=== PATIENT | male | born 1990 | race Caucasian/White ===

== ENCOUNTER 2017-08-14 07:14 | Day surgery (SDC) | payer OTHER ==
[~2017-08-14 07:14] MED LIST: CEFAZOLIN 2 GM/50 ML (PMX) 50 ML IVPB; DEXAMETHASONE 4 MG/ML 1 ML INJ; ONDANSETRON 4 MG INJ; SOD CHLORIDE 0.9% 1,000 ML IV
[2017-08-14] MEDS ORDERED: BUPIVACAINE 0.25% (MPF) 30 ML INJ (08:45)
[2017-08-14] MEDS ORDERED: LABETALOL HCL 20MG INJ IV (09:00)
[2017-08-14] MEDS ORDERED: KETOROLAC 30 MG INJ IV (09:00)
[2017-08-14] MEDS ORDERED: hydrALAzine 20 MG INJ IV (09:00)
[2017-08-14] MEDS ORDERED: HYDROmorphONE (0.2 MG/ML) 10ML SYG IV ×2 (09:00)
[2017-08-14] MEDS ORDERED: MEPERIDINE 25 MG INJ IV (09:00)
[2017-08-14] MEDS ORDERED: METOCLOPRAMIDE 10 MG INJ IV (09:00)
[2017-08-14] MEDS ORDERED: ALBUTEROL 0.083% (NEB) 2.5 MG/3 ML AMP HHN (09:00)
[2017-08-14] MEDS ORDERED: OXYCODONE/ACETAMINOPHEN (5/325) TAB PO ×2 (09:00)
[2017-08-14] MEDS ORDERED: FENTAnyl 50 MCG/ML VIAL IV ×2 (09:00)
[2017-08-14] MEDS ORDERED: MIDAZOLAM 1 MG/ML 2 ML INJ IV (09:00)
[2017-08-14] MEDS ORDERED: DIPHENHYDRAMINE 50 MG INJ IV (09:00)
[2017-08-14] MEDS ORDERED: EPHEDrine SULFATE 50 MG/5 ML SYG IV (09:00)
[2017-08-14] MEDS ORDERED: LIDOCAINE 2% (SDV) 5 ML INJ (09:13)
[2017-08-14] MEDS ORDERED: PROPOFOL 20 ML (09:13)
[2017-08-14] MEDS ORDERED: ROCURONIUM 50 MG INJ (09:13)
[2017-08-14] MEDS ORDERED: CEFAZOLIN 1 GM INJ (09:13)
[2017-08-14] MEDS: POLYMYXIN/BACITRACIN 1L IRRIG (09:24)
[2017-08-14] MEDS: BUPIVACAINE 0.25% (MPF) 30 ML INJ INJ (09:24)
[2017-08-14] MEDS ORDERED: SUGAMMADEX SODIUM 200 MG/2 ML VIAL IV (09:57)
[2017-08-14] MEDS ORDERED: HYDROCODONE/APAP (5/325) TAB PO (10:30)
[2017-08-14] MEDS: FENTAnyl 50 MCG/ML VIAL IV ×2 (10:57→11:17)
[2017-08-14] MEDS: ONDANSETRON 4 MG INJ IV (10:57)
[2017-08-14] MEDS: HYDROmorphONE (0.2 MG/ML) 10ML SYG IV ×2 (11:12→11:41)
[2017-08-14] MEDS ORDERED: ACETAMINOPHEN 1000MG/100ML IV 100 ML (11:21)
[2017-08-14] MEDS: ACETAMINOPHEN 1000MG/100ML IV 100 ML IVPB (11:34)
== END 2017-08-14 12:15 | disposition home or self-care (01) ==
LOC: SDS 07:14
DX: K40.30 Unilateral inguinal hernia, with obstruction, without gangrene, not specified as recurrent (principal)
CPT/HCPCS: 49507; 88302